=== PATIENT | male | born 1980 | race Caucasian/White ===

== ENCOUNTER 2017-05-24 15:11 | Emergency (ER) | payer OTHER ==
[2017-05-24 15:19] VITALS: RESP 18
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
--- NOTE | 2017-05-24 15:28 | CPEKG ---
Heart Rate: 55 RR Interval: 1091 P-R Interval: 152 QRSD Interval: 96 QT Interval: 424 QTC Interval: 406 P [place]: 48 QRS [place]: 50 T Wave [place]: 43 EKG Severity - NORMAL ECG - EKG Impression: SINUS RHYTHM Electronically Signed By: Damian Leonard 24-May-2017 19:44:02
[2017-05-24 15:41] LABS: PLATELET COUNT 294 10^3/uL (150-400)
[2017-05-24 17:31] VITALS: BP 131/79; PULSE 60; TEMP 98.6; O2SAT 95
== END 2017-05-24 17:31 | disposition home or self-care (01) ==
DX: T82.897A Other specified complication of cardiac prosthetic devices, implants and grafts, initial encounter (principal); Y71.2 Prosthetic and other implants, materials and accessory cardiovascular devices associated with adverse incidents